=== PATIENT | female | born 1980 ===

== ENCOUNTER 2017-07-31 07:00 | Day surgery (SDC) | payer OTHER ==
[~2017-07-31] VITALS: Ht 154.9 cm; Wt 54.9 kg
[~2017-07-31 07:00] MED LIST: MIRALAX17 GM PO; PROTONIX40 M1 PO; ZANTAC150 M3 PO
== END 2017-08-01 08:00 | disposition home or self-care (01) ==
LOC: CIR.AMB 07:00 → EDSTATUS 13:00 → SURG 13:00 → O/R 14:12 → CIR.AMB 08-01 08:00 → O/R 08-01 14:45 → SURG 08-01 14:45
DX: D12.8 Benign neoplasm of rectum (principal); D37.5 Neoplasm of uncertain behavior of rectum; D64.89 Other specified anemias

== ENCOUNTER 2018-09-09 06:19 | Day surgery (SDC) | payer OTHER | END 2018-09-09 10:02 | disposition home or self-care (01) | LOC: AMB-ENDOS 06:19 | DX: D12.8 Benign neoplasm of rectum (principal) ==